=== PATIENT | female | born 1995 | race Caucasian/White ===

== ENCOUNTER 2020-05-15 16:17 | Inpatient (IN) ==
[2020-05-15] MEDS ORDERED: Aspirin 81 MG TAB.CHEW PO ONE (16:54)
[2020-05-15] MEDS ORDERED: 0.9 % Sodium Chloride 500 ML IVC ONE (16:54)
[2020-05-15 17:43] LABS: Amphetamine Screen,Urine Positive ng/mL (Cutoff=1000); Barbiturate Screen,Urine Negative ng/mL (Cutoff=200); Benzodiazepines Screen,Urine Negative ng/mL (Cutoff=200); Cannabinoid Screen,Urine Positive ng/mL (Cutoff = 50); Cocaine Screen,Urine Positive ng/mL (Cutoff= 300); Opiate Screen,Urine Positive ng/mL (Cutoff=300); Phencyclidine Screen,Urine Negative ng/mL (Cutoff=25)
[2020-05-15 17:58] LABS: Bacteria,Urine Few per hpf (None-Few); Bilirubin,Urine Small (Negative); Blood,Urine Small (Negative); Clarity,Urine Turbid (Clear); Color,Urine Yellow (Yellow); Glucose,Urine (UA) Normal (Normal); Ketones,Urine 20 mg/dL (Negative); Leukocyte Esterase,Urine Moderate (Negative); Mucus,Urine Few per lpf (None-Few); Nitrite,Urine Negative (Negative); PH,Urine 6.5 pH Units (5.0-8.0); Protein,Urine >=300 mg/dL (Neg-Trace); Renal Epithelial Cells,Urine Few per hpf (None-Few); Squamous Epithelial Cell,Urine Moderate per hpf (None-Few); Transitional Epi Cells,Urine Few per hpf (None-Few); WBC,Urine TNTC per hpf (0-3)
[2020-05-15 18:23] LABS: Hematocrit 36.9 % (35.3-44.9); Hemoglobin 12.9 g/dL (11.5-15.4); Lymphocytes # 0.3 K/mcL (0.6-4.6); Mean Corpuscular Volume 88.7 fL (83.0-100.0); Mean Platelet Volume 10.8 fL (9.4-12.4); Platelet Count 206 K/mcL (140-400); Red Blood Count 4.16 M/mcL (3.82-4.97); Red Cell Distribution Width 11.9 % (11.5-14.5); White Blood Count 13.2 K/mcL (4.3-11.1)
[2020-05-15 18:24] LABS: INR 1.6; Prothrombin Time 18.1 Seconds (9.4-12.1)
[2020-05-15 18:26] LABS: Activated Partial Thrombo Time 27.8 Seconds (26.0-36.0)
[2020-05-15 18:43] LABS: Adenovirus Not Detected (Not Detect); Bordetella Pertussis Not Detected (Not Detect); Coronavirus 229E Not Detected (Not Detect); Coronavirus HKU1 Not Detected (Not Detect); Coronavirus NL63 Not Detected (Not Detect); Coronavirus OC43 Not Detected (Not Detect); Human Metapneumovirus Not Detected (Not Detect); Human Rhinovirus/Enterovirus Not Detected (Not Detect); Influenza A Subtype 2009 H1 Not Detected (Not Detect); Influenza B Not Detected (Not Detect); Parainfluenza Virus 1 Not Detected (Not Detect); Parainfluenza Virus 2 Not Detected (Not Detect); Parainfluenza Virus 3 Not Detected (Not Detect); Parainfluenza Virus 4 Not Detected (Not Detect); Respiratory Syncytial Virus Not Detected (Not Detect); SARS-CoV-2 Not Detected (Not Detect)
[2020-05-15 18:44] LABS: Chlamydophila pneumoniae Not Detected (Not Detect); Mycoplasma pneumoniae Not Detected (Not Detect)
[2020-05-15 18:50] LABS: Monocytes # 0.3 K/mcL (0.0-1.3); Neutrophils # 12.7 K/mcL (1.6-8.9); Toxic Granulation Present (Not Present)
[2020-05-15 18:51] LABS: Platelet Estimate Normal (Normal)
[2020-05-15] MEDS ORDERED: 0.9 % Sodium Chloride 1,000 ML IV ONE ×2 (18:52→20:12)
[2020-05-15 18:53] LABS: Alanine Aminotransferase 35 Units/L (7-52); Albumin 3.3 g/dL (3.5-5.7); Albumin/Globulin Ratio 0.9 (1.1-2.2); Alkaline Phosphatase 88 Units/L (34-104); Aspartate Amino Transferase 38 Units/L (13-39); BUN/Creatinine Ratio 18 (6-26); Bilirubin,Total 0.8 mg/dL (0.3-1.0); Blood Urea Nitrogen 21 mg/dL (6-20); Calcium 8.5 mg/dL (8.6-10.3); Carbon Dioxide 25 mEq/L (23-29); Chloride 87 mEq/L (98-107); Globulin 3.5 g/dL (2.4-3.5); Glucose 130 mg/dL (70-105); Osmolality,Calculated 267 (280-300); Sodium 126 mEq/L (136-145); Total Protein 6.8 g/dL (6.4-8.9); Troponin I < 0.03 ng/mL (< 0.04); eGFR For African Americans > 60 (> 60); eGFR For Non-African Americans 57 (> 60)
[2020-05-15] MEDS ORDERED: cefTRIAXone 1,000 MG in Water for inj. (sterile) 10 ML IVP ONE ×2 (18:54→19:46)
[2020-05-15] MEDS ORDERED: Isovue-370 500 ML BOTTLE IVP ONE ×2 (18:55→18:58)
[2020-05-15] MEDS ORDERED: *HR* Heparin 5,000 UNIT/ML VIAL IVP ONE (19:51)
[2020-05-15] MEDS ORDERED: *HR* Heparin 5,000 UNIT/ML VIAL IVP PRN (19:51)
[2020-05-15] MEDS ORDERED: Naloxone 0.4 MG/ML INJ IVP PRN (20:35)
[2020-05-15] MEDS ORDERED: Perflutren Lipid Microsphere 1.3 ML in 0.9 % Sodium Chloride 8.7 ML IVP PRN (20:37)
[2020-05-15] MEDS: Heparin 25,000UNIT/250ML 1/2NS 25,000 UNIT/250 ML IV.SOLN IVC SCH (20:51)
[2020-05-15] MEDS ORDERED: Potassium Chloride Elixir 20 MEQ/15 ML UDC PO ONE (21:28)
[2020-05-15] MEDS: Acetaminophen 325 MG TABLET PO PRN (23:37)
[2020-05-15] MEDS: Ringers Solution, Lactated 1,000 ML IVC SCH (23:38)
[2020-05-16] MEDS: Piperacillin/Tazobactam 3.375 GM in 0.9 % Sodium Chloride Mini Bag 100 ML IVPB SCH ×3 (00:15→17:03)
[2020-05-16 01:58] LABS: Hematocrit 30.8 % (35.3-44.9); Lymphocytes # 0.6 K/mcL (0.6-4.6); Mean Corpuscular HGB Conc 35.1 g/dL (31.6-35.5); Mean Corpuscular Volume 88.5 fL (83.0-100.0); Platelet Count 183 K/mcL (140-400); Red Blood Count 3.48 M/mcL (3.82-4.97); Red Cell Distribution Width 11.9 % (11.5-14.5); White Blood Count 15.8 K/mcL (4.3-11.1)
[2020-05-16 02:01] LABS: Hemoglobin 10.8 g/dL (11.5-15.4)
[2020-05-16 02:12] LABS: INR 1.9; Prothrombin Time 22.1 Seconds (9.4-12.1)
[2020-05-16 02:15] LABS: Monocytes # 0.3 K/mcL (0.0-1.3); Neutrophils # 14.9 K/mcL (1.6-8.9); Platelet Estimate Normal (Normal); Toxic Granulation Present (Not Present)
[2020-05-16 02:26] LABS: BUN/Creatinine Ratio 13 (6-26); Blood Urea Nitrogen 11 mg/dL (6-20); Calcium 7.3 mg/dL (8.6-10.3); Carbon Dioxide 23 mEq/L (23-29); Chloride 99 mEq/L (98-107); Glucose 135 mg/dL (70-105); Magnesium 1.8 mg/dL (1.6-2.6); Osmolality,Calculated 275 (280-300); Phosphorous 1.9 mg/dL (2.7-4.5); Potassium 2.7 mEq/L (3.5-5.1); Sodium 132 mEq/L (136-145); eGFR For African Americans > 60 (> 60); eGFR For Non-African Americans > 60 (> 60)
[2020-05-16] MEDS ORDERED: Potassium Phosphate 44 MEQ in 0.9 % Sodium Chloride 250 ML IVPB ONE (02:29)
[2020-05-16] MEDS: 0.9 % Sodium Chloride 1,000 ML IVC SCH ×3 (04:23→18:36)
[2020-05-16] MEDS: *HR* Heparin 5,000 UNIT/ML VIAL IVP PRN (06:59)
[2020-05-16] MEDS: *HR* OxyCODONE Immed Rel 5 MG TABLET PO PRN ×3 (09:10→23:17)
[2020-05-16] MEDS: Potassium Chloride Elixir 20 MEQ/15 ML UDC PO SCH ×2 (09:10→13:06)
[2020-05-16] MEDS: Ondansetron 4 MG/2 ML VIAL IVP PRN (09:16)
[2020-05-16] MEDS: Acetaminophen 325 MG TABLET PO PRN (11:09)
[2020-05-16] MEDS: *HR* LORazepam 2 MG/ML VIAL IVP PRN ×2 (11:10→17:02)
[2020-05-16] MEDS: Metoclopramide 10 MG/2 ML VIAL IVP SCH (17:03)
[2020-05-16] MEDS: Heparin 25,000UNIT/250ML 1/2NS 25,000 UNIT/250 ML IV.SOLN IVC SCH (18:37)
[2020-05-16 21:27] LABS: Hepatitis B Surface Antigen Nonreactive (Nonreactive)
[2020-05-16 21:55] LABS: HIV-1&2 Antibody & p24 Ag Nonreactive (Nonreactive)
[2020-05-16 21:56] LABS: Hepatitis B Core IgM Nonreactive (Nonreactive); Hepatitis C Virus Antibody Nonreactive (Nonreactive)
[2020-05-16 21:58] LABS: Hepatitis A Antibody IgM Nonreactive (Nonreactive)
[2020-05-17] MEDS: Metoclopramide 10 MG/2 ML VIAL IVP SCH ×2 (00:17→11:04)
[2020-05-17] MEDS: Piperacillin/Tazobactam 3.375 GM in 0.9 % Sodium Chloride Mini Bag 100 ML IVPB SCH ×2 (00:19→08:46)
[2020-05-17] MEDS: 0.9 % Sodium Chloride 1,000 ML IVC SCH ×3 (03:01→17:55)
[2020-05-17 04:25] LABS: Basophils % 0.2 %; Eosinophils % 0.1 %; Hematocrit 27.7 % (35.3-44.9); Hemoglobin 9.7 g/dL (11.5-15.4); Immature Granulocytes % 0.9 % (0-4); Lymphocytes # 1.3 K/mcL (0.6-4.6); Lymphocytes % 14.7 %; Mean Corpuscular Hemoglobin 31.8 pg (28.0-33.3); Mean Corpuscular Volume 90.8 fL (83.0-100.0); Mean Platelet Volume 10.8 fL (9.4-12.4); Monocytes % 11.2 %; Neutrophils # 6.6 K/mcL (1.6-8.9); Platelet Count 165 K/mcL (140-400); Red Blood Count 3.05 M/mcL (3.82-4.97); Red Cell Distribution Width 12.3 % (11.5-14.5); Segmented Neutrophils % 72.9 %
[2020-05-17 04:42] LABS: Alanine Aminotransferase 40 Units/L (7-52); Albumin 2.4 g/dL (3.5-5.7); Albumin/Globulin Ratio 0.9 (1.1-2.2); Alkaline Phosphatase 69 Units/L (34-104); Aspartate Amino Transferase 39 Units/L (13-39); BUN/Creatinine Ratio 8 (6-26); Bilirubin,Total 0.8 mg/dL (0.3-1.0); Blood Urea Nitrogen 5 mg/dL (6-20); Calcium 7.4 mg/dL (8.6-10.3); Carbon Dioxide 23 mEq/L (23-29); Chloride 104 mEq/L (98-107); Globulin 2.8 g/dL (2.4-3.5); Glucose 95 mg/dL (70-105); Osmolality,Calculated 275 (280-300); Potassium 3.1 mEq/L (3.5-5.1); Sodium 134 mEq/L (136-145); Total Protein 5.2 g/dL (6.4-8.9); eGFR For African Americans > 60 (> 60); eGFR For Non-African Americans > 60 (> 60)
[2020-05-17] MEDS: *HR* Heparin 5,000 UNIT/ML VIAL IVP PRN ×3 (04:57→17:00)
[2020-05-17] MEDS: *HR* OxyCODONE Immed Rel 5 MG TABLET PO PRN ×2 (06:50→15:25)
[2020-05-17] MEDS ORDERED: Metoclopramide 10 MG/2 ML VIAL IVP PRN (08:36)
[2020-05-17] MEDS: *HR* LORazepam 2 MG/ML VIAL IVP PRN ×2 (08:45→15:20)
[2020-05-17] MEDS: Ringers Solution, Lactated 1,000 ML IVC SCH (11:04)
[2020-05-17] MEDS: Heparin 25,000UNIT/250ML 1/2NS 25,000 UNIT/250 ML IV.SOLN IVC SCH (15:32)
[2020-05-17] MEDS: Penicillin G Potassium 4,000,000 UNIT in 0.9 % Sodium Chloride 100 ML IVPB SCH ×2 (17:39→19:38)
[2020-05-17] MEDS ORDERED: Isovue-370 500 ML BOTTLE IVP ONE (17:46)
[2020-05-17] MEDS: Clindamycin 600 MG/50 ML 600 MG/50 ML IV.SOLN IVPB SCH (17:47)
[2020-05-17] MEDS: Lactobacillus 1 EACH CAP.SPRINK PO SCH (19:38)
[2020-05-18] MEDS: Clindamycin 600 MG/50 ML 600 MG/50 ML IV.SOLN IVPB SCH ×4 (00:05→23:38)
[2020-05-18] MEDS: Penicillin G Potassium 4,000,000 UNIT in 0.9 % Sodium Chloride 100 ML IVPB SCH ×6 (00:05→23:36)
[2020-05-18] MEDS: *HR* OxyCODONE Immed Rel 5 MG TABLET PO PRN ×4 (01:25→20:26)
[2020-05-18] MEDS: 0.9 % Sodium Chloride 1,000 ML IVC SCH ×3 (01:31→22:38)
[2020-05-18] MEDS: Ondansetron 4 MG/2 ML VIAL IVP PRN ×2 (01:32→08:13)
[2020-05-18] MEDS: Lactobacillus 1 EACH CAP.SPRINK PO SCH ×2 (08:09→20:26)
[2020-05-18 08:22] LABS: Hematocrit 27.4 % (35.3-44.9); Hemoglobin 9.4 g/dL (11.5-15.4); Mean Corpuscular HGB Conc 34.3 g/dL (31.6-35.5); Mean Corpuscular Hemoglobin 31.1 pg (28.0-33.3); Mean Corpuscular Volume 90.7 fL (83.0-100.0); Mean Platelet Volume 10.6 fL (9.4-12.4); Platelet Count 219 K/mcL (140-400); Red Blood Count 3.02 M/mcL (3.82-4.97); Red Cell Distribution Width 12.3 % (11.5-14.5); White Blood Count 8.4 K/mcL (4.3-11.1)
[2020-05-18 08:42] LABS: BUN/Creatinine Ratio 8 (6-26); Blood Urea Nitrogen 4 mg/dL (6-20); Calcium 7.7 mg/dL (8.6-10.3); Carbon Dioxide 25 mEq/L (23-29); Chloride 105 mEq/L (98-107); Glucose 102 mg/dL (70-105); Osmolality,Calculated 281 (280-300); Sodium 137 mEq/L (136-145); eGFR For African Americans > 60 (> 60); eGFR For Non-African Americans > 60 (> 60)
[2020-05-18 08:53] LABS: Eosinophils # 0.2 K/mcL (0.0-0.6); Lymphocytes # 2.5 K/mcL (0.6-4.6); Monocytes # 1.2 K/mcL (0.0-1.3); Neutrophils # 4.5 K/mcL (1.6-8.9); Reactive Lymphocytes Present (Not Present)
[2020-05-18 08:54] LABS: Platelet Estimate Normal (Normal)
[2020-05-18] MEDS: *HR* LORazepam 2 MG/ML VIAL IVP PRN ×2 (10:38→14:56)
[2020-05-18] MEDS: Heparin 25,000UNIT/250ML 1/2NS 25,000 UNIT/250 ML IV.SOLN IVC SCH (10:39)
[2020-05-18] MEDS: *HR* Rivaroxaban 15 MG TABLET PO SCH (14:56)
[2020-05-18] MEDS: Vancomycin 1,500 MG/265 ML IV.SOLN IVPB SCH ×2 (15:56→23:37)
[2020-05-18] MEDS ORDERED: Vancomycin 1,500 MG/265 ML IV.SOLN IVPB SCH (16:00)
[2020-05-18] MEDS ORDERED: Nicotine 14 MG PATCH.TD24 TD SCH (19:00)
[2020-05-19] MEDS: Penicillin G Potassium 4,000,000 UNIT in 0.9 % Sodium Chloride 100 ML IVPB SCH ×4 (01:17→11:54)
[2020-05-19 02:26] LABS: Basophils % 0.5 %; Eosinophils # 0.1 K/mcL (0.0-0.6); Eosinophils % 0.6 %; Hematocrit 26.2 % (35.3-44.9); Hemoglobin 9.1 g/dL (11.5-15.4); Immature Granulocytes % 6.5 % (0-4); Lymphocytes # 2.4 K/mcL (0.6-4.6); Lymphocytes % 30.8 %; Mean Corpuscular HGB Conc 34.7 g/dL (31.6-35.5); Mean Corpuscular Hemoglobin 31.9 pg (28.0-33.3); Mean Corpuscular Volume 91.9 fL (83.0-100.0); Mean Platelet Volume 10.3 fL (9.4-12.4); Monocytes # 1.1 K/mcL (0.0-1.3); Monocytes % 13.8 %; Neutrophils # 3.7 K/mcL (1.6-8.9); Platelet Count 243 K/mcL (140-400); Red Blood Count 2.85 M/mcL (3.82-4.97); Red Cell Distribution Width 12.4 % (11.5-14.5); Segmented Neutrophils % 47.8 %; White Blood Count 7.7 K/mcL (4.3-11.1)
[2020-05-19 02:47] LABS: BUN/Creatinine Ratio 13 (6-26); Blood Urea Nitrogen 7 mg/dL (6-20); Calcium 7.7 mg/dL (8.6-10.3); Carbon Dioxide 24 mEq/L (23-29); Chloride 107 mEq/L (98-107); Glucose 106 mg/dL (70-105); Osmolality,Calculated 286 (280-300); Platelet Estimate Normal (Normal); Potassium 3.1 mEq/L (3.5-5.1); Reactive Lymphocytes Present (Not Present); Sodium 139 mEq/L (136-145); eGFR For African Americans > 60 (> 60); eGFR For Non-African Americans > 60 (> 60)
[2020-05-19] MEDS: *HR* LORazepam 2 MG/ML VIAL IVP PRN ×3 (03:28→13:10)
[2020-05-19] MEDS: 0.9 % Sodium Chloride 1,000 ML IVC SCH ×2 (04:08→11:47)
[2020-05-19] MEDS: *HR* OxyCODONE Immed Rel 5 MG TABLET PO PRN (07:49)
[2020-05-19] MEDS: Clindamycin 600 MG/50 ML 600 MG/50 ML IV.SOLN IVPB SCH (07:49)
[2020-05-19] MEDS: *HR* Rivaroxaban 15 MG TABLET PO SCH (07:49)
[2020-05-19] MEDS: Vancomycin 1,500 MG/265 ML IV.SOLN IVPB SCH (08:09)
[2020-05-19] MEDS: Lactobacillus 1 EACH CAP.SPRINK PO SCH (08:09)
[2020-05-19 15:19] VITALS: BP 111/75
== END 2020-05-19 16:49 | disposition left against medical advice (07) | DRG 720 ==
LOC: 2ANU 16:17 → EMEROOARM 16:17 → 2ANU 21:38
PROVIDERS: ADMIT Student in an Organized Health Care Education/Training Program; ATTEND Student in an Organized Health Care Education/Training Program

== ENCOUNTER 2020-05-20 19:46 | Inpatient (IN) ==
[2020-05-20 20:55] LABS: Hematocrit 29.4 % (35.3-44.9); Hemoglobin 9.8 g/dL (11.5-15.4); Mean Corpuscular HGB Conc 33.3 g/dL (31.6-35.5); Mean Corpuscular Hemoglobin 31.5 pg (28.0-33.3); Mean Corpuscular Volume 94.5 fL (83.0-100.0); Platelet Count 291 K/mcL (140-400); Red Blood Count 3.11 M/mcL (3.82-4.97); Red Cell Distribution Width 12.9 % (11.5-14.5); White Blood Count 5.8 K/mcL (4.3-11.1)
[2020-05-20 20:56] LABS: INR 1.6; Prothrombin Time 18.7 Seconds (9.4-12.1)
[2020-05-20 20:59] LABS: Activated Partial Thrombo Time 29.4 Seconds (26.0-36.0)
[2020-05-20 21:10] LABS: BUN/Creatinine Ratio 7 (6-26); Blood Urea Nitrogen 4 mg/dL (6-20); Calcium 8.3 mg/dL (8.6-10.3); Carbon Dioxide 26 mEq/L (23-29); Chloride 102 mEq/L (98-107); Glucose 89 mg/dL (70-105); Osmolality,Calculated 280 (280-300); Sodium 137 mEq/L (136-145); eGFR For African Americans > 60 (> 60); eGFR For Non-African Americans > 60 (> 60)
[2020-05-20 21:11] LABS: Troponin I < 0.03 ng/mL (< 0.04)
[2020-05-20 21:24] LABS: Lymphocytes # 0.8 K/mcL (0.6-4.6); Monocytes # 0.2 K/mcL (0.0-1.3); Neutrophils # 4.6 K/mcL (1.6-8.9); Platelet Estimate Normal (Normal)
[2020-05-20 21:25] LABS: Acanthocytes 1+ (Not Present); Polychromasia 1+ (Not Present); Reactive Lymphocytes Present (Not Present)
[2020-05-20] MEDS ORDERED: Clindamycin 600 MG/50 ML 600 MG/50 ML IV.SOLN IVPB STA (21:46)
[2020-05-20] MEDS ORDERED: *HR* Rivaroxaban 15 MG TABLET PO STA (21:46)
[2020-05-20] MEDS ORDERED: Penicillin G Potassium 4,000,000 UNIT in 0.9 % Sodium Chloride 100 ML IVPB STA (21:46)
[2020-05-20] MEDS ORDERED: Potassium Chloride Elixir 20 MEQ/15 ML UDC PO ONE ×2 (22:32→23:12)
[2020-05-20] MEDS ORDERED: Naloxone 0.4 MG/ML INJ IVP PRN (23:16)
[2020-05-20] MEDS: Acetaminophen 325 MG TABLET PO PRN (23:46)
[2020-05-21 01:04] LABS: Basophils % 0.6 %; Eosinophils % 0.6 %; Hematocrit 26.4 % (35.3-44.9); Hemoglobin 8.9 g/dL (11.5-15.4); Immature Granulocytes % 4.4 % (0-4); Lymphocytes # 0.8 K/mcL (0.6-4.6); Mean Corpuscular HGB Conc 33.7 g/dL (31.6-35.5); Mean Corpuscular Hemoglobin 31.3 pg (28.0-33.3); Mean Platelet Volume 10.1 fL (9.4-12.4); Monocytes # 0.6 K/mcL (0.0-1.3); Neutrophils # 3.5 K/mcL (1.6-8.9); Platelet Count 275 K/mcL (140-400); Red Blood Count 2.84 M/mcL (3.82-4.97); Red Cell Distribution Width 12.9 % (11.5-14.5); Segmented Neutrophils % 66.4 %; White Blood Count 5.3 K/mcL (4.3-11.1)
[2020-05-21] MEDS: Penicillin G Potassium 4,000,000 UNIT in 0.9 % Sodium Chloride 100 ML IVPB SCH ×6 (01:14→23:40)
[2020-05-21 01:22] LABS: BUN/Creatinine Ratio 8 (6-26); Blood Urea Nitrogen 5 mg/dL (6-20); Calcium 7.8 mg/dL (8.6-10.3); Carbon Dioxide 26 mEq/L (23-29); Chloride 102 mEq/L (98-107); Glucose 82 mg/dL (70-105); Osmolality,Calculated 278 (280-300); Potassium 3.5 mEq/L (3.5-5.1); Sodium 136 mEq/L (136-145); eGFR For African Americans > 60 (> 60); eGFR For Non-African Americans > 60 (> 60)
[2020-05-21 01:53] LABS: Amphetamine Screen,Urine Negative ng/mL (Cutoff=1000); Barbiturate Screen,Urine Negative ng/mL (Cutoff=200); Benzodiazepines Screen,Urine Negative ng/mL (Cutoff=200); Cannabinoid Screen,Urine Positive ng/mL (Cutoff = 50); Cocaine Screen,Urine Negative ng/mL (Cutoff= 300); Opiate Screen,Urine Negative ng/mL (Cutoff=300); Phencyclidine Screen,Urine Negative ng/mL (Cutoff=25)
[2020-05-21] MEDS: Acetaminophen 325 MG TABLET PO PRN (05:46)
[2020-05-21] MEDS: Clindamycin 600 MG/50 ML 600 MG/50 ML IV.SOLN IVPB SCH ×3 (07:39→21:08)
[2020-05-21] MEDS: *HR* Rivaroxaban 15 MG TABLET PO SCH ×2 (07:41→17:18)
[2020-05-21] MEDS: Vancomycin 1,500 MG/265 ML IV.SOLN IVPB SCH ×2 (09:59→17:19)
[2020-05-21] MEDS ORDERED: cloNIDine HCL 0.1 MG TABLET PO ONE (14:51)
[2020-05-21] MEDS ORDERED: Ketorolac 15 MG/ML VIAL IVP ONE (17:28)
[2020-05-21] MEDS ORDERED: *HR* Buprenorphine HCl 2 MG SUBLINGUAL TABLET SL STA (21:37)
[2020-05-21] MEDS ORDERED: *HR* Buprenorphine HCl 2 MG SUBLINGUAL TABLET SL PRN (21:37)
[2020-05-21] MEDS ORDERED: cloNIDine HCL 0.1 MG TABLET PO PRN (21:45)
[2020-05-21] MEDS: hydrOXYzine pamoate 25 MG CAPSULE PO PRN (22:00)
[2020-05-21] MEDS ORDERED: Ondansetron 4 MG/2 ML VIAL IVP PRN (23:57)
[2020-05-22] MEDS: Vancomycin 1,500 MG/265 ML IV.SOLN IVPB SCH ×2 (00:57→09:25)
[2020-05-22 02:55] LABS: Basophils % 0.4 %; Eosinophils % 0.2 %; Hematocrit 27.8 % (35.3-44.9); Hemoglobin 9.3 g/dL (11.5-15.4); Immature Granulocytes % 2.8 % (0-4); Lymphocytes # 1.1 K/mcL (0.6-4.6); Lymphocytes % 24.3 %; Mean Corpuscular HGB Conc 33.5 g/dL (31.6-35.5); Mean Corpuscular Hemoglobin 31.5 pg (28.0-33.3); Mean Corpuscular Volume 94.2 fL (83.0-100.0); Monocytes # 0.6 K/mcL (0.0-1.3); Monocytes % 13.5 %; Neutrophils # 2.7 K/mcL (1.6-8.9); Platelet Count 317 K/mcL (140-400); Red Blood Count 2.95 M/mcL (3.82-4.97); Segmented Neutrophils % 58.8 %; White Blood Count 4.6 K/mcL (4.3-11.1)
[2020-05-22 03:11] LABS: BUN/Creatinine Ratio 9 (6-26); Blood Urea Nitrogen 5 mg/dL (6-20); Calcium 8.2 mg/dL (8.6-10.3); Carbon Dioxide 24 mEq/L (23-29); Chloride 104 mEq/L (98-107); Glucose 96 mg/dL (70-105); Osmolality,Calculated 275 (280-300); Potassium 3.7 mEq/L (3.5-5.1); Sodium 134 mEq/L (136-145); eGFR For African Americans > 60 (> 60); eGFR For Non-African Americans > 60 (> 60)
[2020-05-22] MEDS: Penicillin G Potassium 4,000,000 UNIT in 0.9 % Sodium Chloride 100 ML IVPB SCH ×5 (04:35→15:09)
[2020-05-22] MEDS: Clindamycin 600 MG/50 ML 600 MG/50 ML IV.SOLN IVPB SCH ×2 (05:04→13:54)
[2020-05-22] MEDS: *HR* Rivaroxaban 15 MG TABLET PO SCH (07:40)
[2020-05-22] MEDS: hydrOXYzine pamoate 25 MG CAPSULE PO PRN ×2 (07:40→13:54)
[2020-05-22 08:37] LABS: BUN/Creatinine Ratio 9 (6-26); Blood Urea Nitrogen 5 mg/dL (6-20); eGFR For African Americans > 60 (> 60); eGFR For Non-African Americans > 60 (> 60)
[2020-05-22] MEDS ORDERED: *HR* Buprenorphine HCl 2 MG SUBLINGUAL TABLET SL SCH (09:00)
[2020-05-22 10:59] VITALS: BP 107/68
[2020-05-22] MEDS: Acetaminophen 325 MG TABLET PO PRN (13:54)
== END 2020-05-22 16:01 | disposition left against medical advice (07) | DRG 193 ==
LOC: 2ANU 19:46 → EMEROOARM 19:46 → SUATTDRO 22:54 → 2ANU 23:15
PROVIDERS: ADMIT Family Medicine; ATTEND Internal Medicine

== ENCOUNTER 2020-05-31 11:19 | Inpatient (IN) ==
[2020-05-31] MEDS ORDERED: Clindamycin 600 MG/50 ML 600 MG/50 ML IV.SOLN IVPB ONE (11:45)
[2020-05-31] MEDS ORDERED: 0.9 % Sodium Chloride 1,000 ML IVC ONE ×3 (12:08→17:33)
[2020-05-31 12:25] LABS: Basophils % 0.3 %; Hemoglobin 9.7 g/dL (11.5-15.4); Immature Granulocytes % 0.5 % (0-4); Lymphocytes # 0.7 K/mcL (0.6-4.6); Lymphocytes % 9.3 %; Mean Corpuscular HGB Conc 34.6 g/dL (31.6-35.5); Mean Corpuscular Hemoglobin 31.1 pg (28.0-33.3); Mean Corpuscular Volume 89.7 fL (83.0-100.0); Mean Platelet Volume 9.8 fL (9.4-12.4); Monocytes # 0.7 K/mcL (0.0-1.3); Monocytes % 9.4 %; Platelet Count 236 K/mcL (140-400); Red Blood Count 3.12 M/mcL (3.82-4.97); Segmented Neutrophils % 80.5 %; White Blood Count 7.9 K/mcL (4.3-11.1)
[2020-05-31 12:37] LABS: Neutrophils # 6.4 K/mcL (1.6-8.9)
[2020-05-31 12:47] LABS: BUN/Creatinine Ratio 11 (6-26); Blood Urea Nitrogen 9 mg/dL (6-20); C-Reactive Protein 202 mg/L (Less than 10); Calcium 8.7 mg/dL (8.6-10.3); Carbon Dioxide 28 mEq/L (23-29); Chloride 90 mEq/L (98-107); Glucose 115 mg/dL (70-105); Magnesium 1.6 mg/dL (1.6-2.6); Osmolality,Calculated 266 (280-300); Potassium 3.5 mEq/L (3.5-5.1); Sodium 128 mEq/L (136-145); eGFR For African Americans > 60 (> 60); eGFR For Non-African Americans > 60 (> 60)
[2020-05-31 13:11] LABS: Toxic Vacuolation Present (Not Present)
[2020-05-31 13:12] LABS: Dohle Bodies Present (Not Present); Polychromasia 1+ (Not Present); Toxic Granulation Present (Not Present)
[2020-05-31] MEDS ORDERED: Ondansetron 4 MG/2 ML VIAL IVP PRN ×2 (13:59→18:31)
[2020-05-31] MEDS ORDERED: Naloxone 0.4 MG/ML INJ IVP PRN (13:59)
[2020-05-31] MEDS ORDERED: Piperacillin/Tazobactam 3.375 GM in 0.9 % Sodium Chloride Mini Bag 100 ML IVPB SCH (14:00)
[2020-05-31] MEDS ORDERED: 0.9 % Sodium Chloride 1,000 ML IVC SCH (14:00)
[2020-05-31] MEDS ORDERED: *HR* LORazepam 0.5 MG TABLET PO PRN (14:01)
[2020-05-31] MEDS ORDERED: Morphine Sulfate Oral CONC 10 MG/0.5 ML ORAL.SYG PO PRN (14:05)
[2020-05-31 14:26] LABS: INR 2.2; Prothrombin Time 25.4 Seconds (9.4-12.1)
[2020-05-31 14:28] LABS: Activated Partial Thrombo Time 35.8 Seconds (26.0-36.0)
[2020-05-31 14:33] LABS: Alanine Aminotransferase 14 Units/L (7-52); Albumin 3.4 g/dL (3.5-5.7); Albumin/Globulin Ratio 0.9 (1.1-2.2); Alkaline Phosphatase 59 Units/L (34-104); Aspartate Amino Transferase 22 Units/L (13-39); Bilirubin,Direct 0.1 mg/dL (0.0-0.2); Bilirubin,Indirect 0.4 mg/dL (0.0-1.0); Bilirubin,Total 0.5 mg/dL (0.3-1.0); Globulin 3.7 g/dL (2.4-3.5); Total Protein 7.1 g/dL (6.4-8.9)
[2020-05-31] MEDS ORDERED: cloNIDine HCL 0.1 MG TABLET PO SCH (15:00)
[2020-05-31] MEDS ORDERED: Acetaminophen 325 MG TABLET PO PRN ×2 (15:25→18:31)
[2020-05-31] MEDS ORDERED: Penicillin G Potassium 4,000,000 UNIT in 0.9 % Sodium Chloride 100 ML IVPB SCH (16:00)
[2020-05-31] MEDS ORDERED: Isovue-370 500 ML BOTTLE IVP ONE (17:27)
[2020-05-31] MEDS ORDERED: Perflutren Lipid Microsphere 1.3 ML in 0.9 % Sodium Chloride 8.7 ML IVP PRN (17:34)
[2020-05-31] MEDS ORDERED: *HR* Heparin 5,000 UNIT/ML VIAL SQ SCH (18:00)
[2020-05-31] MEDS: Penicillin G Potassium 4,000,000 UNIT in 0.9 % Sodium Chloride 100 ML IVPB SCH ×2 (20:45→23:08)
[2020-05-31] MEDS: 0.9 % Sodium Chloride 1,000 ML IVC SCH (20:45)
[2020-05-31] MEDS: *HR* LORazepam 0.5 MG TABLET PO PRN (20:46)
[2020-05-31] MEDS ORDERED: Clindamycin 600 MG/50 ML 600 MG/50 ML IV.SOLN IVPB SCH (22:00)
[2020-05-31] MEDS: Clindamycin 600 MG/50 ML 600 MG/50 ML IV.SOLN IVPB SCH (22:10)
[2020-06-01 00:30] LABS: Bilirubin,Urine Negative (Negative); Blood,Urine Negative (Negative); Clarity,Urine Clear (Clear); Color,Urine Colorless (Yellow); Glucose,Urine (UA) Normal (Normal); Ketones,Urine Negative (Negative); Leukocyte Esterase,Urine Negative (Negative); Nitrite,Urine Negative (Negative); PH,Urine 6.5 pH Units (5.0-8.0); Protein,Urine Negative (Neg-Trace); Specific Gravity,Urine 1.023 (1.010-1.025); Urobilinogen,Urine Normal (Normal)
[2020-06-01] MEDS: 0.9 % Sodium Chloride 1,000 ML IVC SCH ×3 (03:22→17:34)
[2020-06-01] MEDS: Penicillin G Potassium 4,000,000 UNIT in 0.9 % Sodium Chloride 100 ML IVPB SCH ×6 (03:23→23:49)
[2020-06-01] MEDS: Clindamycin 600 MG/50 ML 600 MG/50 ML IV.SOLN IVPB SCH ×3 (05:58→22:16)
[2020-06-01] MEDS: *HR* LORazepam 0.5 MG TABLET PO PRN (06:06)
[2020-06-01 07:24] LABS: Hematocrit 27.6 % (35.3-44.9); Mean Corpuscular HGB Conc 32.6 g/dL (31.6-35.5); Mean Corpuscular Hemoglobin 30.3 pg (28.0-33.3); Mean Corpuscular Volume 92.9 fL (83.0-100.0); Mean Platelet Volume 10.3 fL (9.4-12.4); Monocytes # 0.5 K/mcL (0.0-1.3); Platelet Count 177 K/mcL (140-400); Red Blood Count 2.97 M/mcL (3.82-4.97); Red Cell Distribution Width 13.6 % (11.5-14.5); White Blood Count 4.1 K/mcL (4.3-11.1)
[2020-06-01 07:54] LABS: Dohle Bodies Present (Not Present); Lymphocytes # 1.1 K/mcL (0.6-4.6); Neutrophils # 2.5 K/mcL (1.6-8.9); Platelet Estimate Normal (Normal); Polychromasia 1+ (Not Present)
[2020-06-01 07:55] LABS: Anisocytosis 1+ (Not Present); Large Platelets Present (Not Present); Reactive Lymphocytes Present (Not Present)
[2020-06-01 08:01] LABS: Alanine Aminotransferase 13 Units/L (7-52); Albumin 2.6 g/dL (3.5-5.7); Alkaline Phosphatase 41 Units/L (34-104); Aspartate Amino Transferase 17 Units/L (13-39); BUN/Creatinine Ratio 15 (6-26); Bilirubin,Total 0.3 mg/dL (0.3-1.0); Blood Urea Nitrogen 8 mg/dL (6-20); Calcium 7.6 mg/dL (8.6-10.3); Carbon Dioxide 26 mEq/L (23-29); Chloride 107 mEq/L (98-107); Globulin 2.7 g/dL (2.4-3.5); Glucose 105 mg/dL (70-105); Osmolality,Calculated 287 (280-300); Potassium 3.1 mEq/L (3.5-5.1); Sodium 139 mEq/L (136-145); Total Protein 5.3 g/dL (6.4-8.9); eGFR For African Americans > 60 (> 60); eGFR For Non-African Americans > 60 (> 60)
[2020-06-01 09:20] LABS: C-Reactive Protein 167 mg/L (Less than 10)
[2020-06-01] MEDS ORDERED: Vancomycin 1,500 MG/265 ML IV.SOLN IVPB SCH ×2 (10:00→22:00)
[2020-06-01 11:45] LABS: BUN/Creatinine Ratio 12 (6-26); Blood Urea Nitrogen 6 mg/dL (6-20); Calcium 7.7 mg/dL (8.6-10.3); Carbon Dioxide 28 mEq/L (23-29); Chloride 107 mEq/L (98-107); Glucose 118 mg/dL (70-105); Osmolality,Calculated 285 (280-300); Potassium 3.2 mEq/L (3.5-5.1); Sodium 138 mEq/L (136-145); eGFR For African Americans > 60 (> 60); eGFR For Non-African Americans > 60 (> 60)
[2020-06-01] MEDS ORDERED: hydrOXYzine pamoate 25 MG CAPSULE PO SCH (12:00)
[2020-06-01] MEDS ORDERED: *HR* LORazepam 0.5 MG TABLET PO ONE (12:19)
[2020-06-01] MEDS ORDERED: *HR* LORazepam 0.5 MG TABLET PO SCH (15:00)
[2020-06-01] MEDS ORDERED: Ondansetron 4 MG/2 ML VIAL IVP PRN (17:24)
[2020-06-01] MEDS ORDERED: Acetaminophen 325 MG TABLET PO PRN (17:24)
[2020-06-01] MEDS: hydrOXYzine pamoate 25 MG CAPSULE PO SCH ×2 (18:32→23:50)
[2020-06-01] MEDS: *HR* LORazepam 1 MG TABLET PO PRN (20:22)
[2020-06-01] MEDS ORDERED: *HR* LORazepam 1 MG TABLET PO SCH (21:00)
[2020-06-02] MEDS: 0.9 % Sodium Chloride 1,000 ML IVC SCH ×3 (01:03→18:01)
[2020-06-02 01:51] LABS: Hematocrit 23.2 % (35.3-44.9); Mean Corpuscular HGB Conc 34.5 g/dL (31.6-35.5); Mean Corpuscular Volume 89.9 fL (83.0-100.0); Mean Platelet Volume 10.5 fL (9.4-12.4); Platelet Count 216 K/mcL (140-400); Red Blood Count 2.58 M/mcL (3.82-4.97); Red Cell Distribution Width 13.5 % (11.5-14.5); White Blood Count 4.1 K/mcL (4.3-11.1)
[2020-06-02 02:13] LABS: Alanine Aminotransferase 15 Units/L (7-52); Albumin 2.5 g/dL (3.5-5.7); Alkaline Phosphatase 38 Units/L (34-104); Aspartate Amino Transferase 17 Units/L (13-39); BUN/Creatinine Ratio 8 (6-26); Bilirubin,Total 0.3 mg/dL (0.3-1.0); Blood Urea Nitrogen 4 mg/dL (6-20); C-Reactive Protein 90 mg/L (Less than 10); Calcium 7.5 mg/dL (8.6-10.3); Carbon Dioxide 25 mEq/L (23-29); Chloride 110 mEq/L (98-107); Globulin 2.6 g/dL (2.4-3.5); Glucose 89 mg/dL (70-105); Osmolality,Calculated 288 (280-300); Potassium 3.4 mEq/L (3.5-5.1); Sodium 141 mEq/L (136-145); Total Protein 5.1 g/dL (6.4-8.9); eGFR For African Americans > 60 (> 60); eGFR For Non-African Americans > 60 (> 60)
[2020-06-02 02:21] LABS: Eosinophils # 0.2 K/mcL (0.0-0.6); Lymphocytes # 1.6 K/mcL (0.6-4.6); Monocytes # 0.4 K/mcL (0.0-1.3); Neutrophils # 1.9 K/mcL (1.6-8.9)
[2020-06-02 02:22] LABS: Hypochromasia Present (Not Present); Platelet Estimate Normal (Normal); Polychromasia 1+ (Not Present); Reactive Lymphocytes Present (Not Present)
[2020-06-02] MEDS: *HR* LORazepam 1 MG TABLET PO PRN ×4 (02:55→21:00)
[2020-06-02] MEDS: Penicillin G Potassium 4,000,000 UNIT in 0.9 % Sodium Chloride 100 ML IVPB SCH ×6 (04:19→23:20)
[2020-06-02] MEDS: hydrOXYzine pamoate 25 MG CAPSULE PO SCH ×4 (05:41→23:19)
[2020-06-02] MEDS: Clindamycin 600 MG/50 ML 600 MG/50 ML IV.SOLN IVPB SCH ×3 (05:50→22:05)
[2020-06-02] MEDS: Vancomycin 1,500 MG/265 ML IV.SOLN IVPB SCH ×2 (09:48→16:40)
[2020-06-03] MEDS: 0.9 % Sodium Chloride 1,000 ML IVC SCH ×3 (00:17→17:29)
[2020-06-03] MEDS: Vancomycin 1,250 MG/262.5 ML IV.SOLN IVPB SCH ×3 (01:20→17:28)
[2020-06-03] MEDS: *HR* LORazepam 1 MG TABLET PO PRN ×3 (03:00→15:39)
[2020-06-03] MEDS: Penicillin G Potassium 4,000,000 UNIT in 0.9 % Sodium Chloride 100 ML IVPB SCH ×4 (04:45→15:39)
[2020-06-03 06:00] LABS: Alanine Aminotransferase 14 Units/L (7-52); Albumin 2.8 g/dL (3.5-5.7); Alkaline Phosphatase 43 Units/L (34-104); Aspartate Amino Transferase 14 Units/L (13-39); BUN/Creatinine Ratio 6 (6-26); Bilirubin,Total 0.3 mg/dL (0.3-1.0); Blood Urea Nitrogen 3 mg/dL (6-20); Calcium 8.4 mg/dL (8.6-10.3); Carbon Dioxide 26 mEq/L (23-29); Chloride 107 mEq/L (98-107); Globulin 2.8 g/dL (2.4-3.5); Glucose 88 mg/dL (70-105); Osmolality,Calculated 284 (280-300); Potassium 3.9 mEq/L (3.5-5.1); Sodium 139 mEq/L (136-145); Total Protein 5.6 g/dL (6.4-8.9); eGFR For African Americans > 60 (> 60); eGFR For Non-African Americans > 60 (> 60)
[2020-06-03] MEDS: hydrOXYzine pamoate 25 MG CAPSULE PO SCH ×3 (06:18→17:28)
[2020-06-03] MEDS: Clindamycin 600 MG/50 ML 600 MG/50 ML IV.SOLN IVPB SCH ×2 (06:18→14:36)
[2020-06-03 06:25] LABS: Eosinophils # 0.1 K/mcL (0.0-0.6); Eosinophils % 1.2 %; Hematocrit 25.1 % (35.3-44.9); Hemoglobin 8.3 g/dL (11.5-15.4); Immature Granulocytes % 0.5 % (0-4); Lymphocytes # 1.7 K/mcL (0.6-4.6); Lymphocytes % 40.8 %; Mean Corpuscular HGB Conc 33.1 g/dL (31.6-35.5); Mean Corpuscular Hemoglobin 30.4 pg (28.0-33.3); Mean Corpuscular Volume 91.9 fL (83.0-100.0); Monocytes # 0.5 K/mcL (0.0-1.3); Monocytes % 11.4 %; Neutrophils # 1.9 K/mcL (1.6-8.9); Platelet Count 281 K/mcL (140-400); Red Blood Count 2.73 M/mcL (3.82-4.97); Segmented Neutrophils % 45.1 %; White Blood Count 4.1 K/mcL (4.3-11.1)
[2020-06-03 07:34] LABS: Platelet Estimate Slight Decrease (Normal); Reactive Lymphocytes Present (Not Present)
[2020-06-03 16:13] VITALS: BP 110/52
[2020-06-03] MEDS ORDERED: Acetaminophen 325 MG TABLET PO PRN (16:22)
[2020-06-03] MEDS: Vancomycin 1,500 MG/265 ML IV.SOLN IVPB SCH (17:17)
== END 2020-06-03 19:00 | disposition short-term general hospital (02) | DRG 720 ==
LOC: 2NENU 11:19 → EMEROOARM 11:19 → 2NENU 13:45 → SUATTDRO 14:03 → ICNU 18:33 → 2NENU 06-01 18:03
PROVIDERS: ADMIT Internal Medicine; ATTEND Internal Medicine